=== PATIENT | male | born 1960 | race Caucasian/White ===

== ENCOUNTER 2019-04-17 12:10 | Outpatient (CLI) | payer BC ==
--- NOTE | 2019-04-17 13:13 | ULT ---
US Carotid Doppler STANDARD History: R41.0. Confusion. Comparison: None. Findings: Real-time grayscale, color, and spectral analysis of the extracranial carotid and vertebral arteries was performed. Antegrade flow both vertebral arteries. No abnormally elevated peak systolic velocities. Impression: No hemodynamically significant stenosis.
== END 2019-04-17 12:11 | disposition home or self-care (01) ==
LOC: BICULT 12:10
PROVIDERS: ATTEND Physician Assistant
DX: R41.0 Disorientation, unspecified (principal)
CPT/HCPCS: 93880

== ENCOUNTER 2020-12-16 07:36 | Outpatient (CLI) | payer BC ==
--- NOTE | 2020-12-16 09:43 | CT ---
CTA ABDOMEN AND PELVIS AND BILATERAL LOWER EXTREMITIES FOLLOWING CT RUNOFF: Multiplanar reconstruction and 3D postprocessing performed. INDICATION: Peripheral vascular disease. Claudication. FINDINGS: The abdominal aorta shows mild atherosclerotic change. No aneurysm or dissection. No significant sten osis at the origin of the arch vessels including celiac artery, superior mesenteric artery, or renal arteries. There are two right renal arteries, both of which appear patent. The aortic bifurcation is patent. Common iliac arteries show mild atherosclerotic change, but no sten osis. RIGHT LOWER EXTREMITY Right internal and external iliacs are patent. There is occlusion of the right common femoral artery at its origin with atherosclerotic changes and stenosis in the distal right external iliac. Focal area of dense calcification is seen in the right c ommon femoral at this occlusion. The profunda appears to fill retrograde via collaterals from the internal iliac. The right superficia l femoral artery is patent and appears to fill via retrograde flow from the profunda. There is atherosclerotic change throughout the right superficial femoral artery with areas of moderat e stenosis of mid and distal thigh. Focal stenosis distally at Jovanni's canal appears to approach 50% diameter. The right popliteal shows atherosclerotic calcification and moderate stenosis at the joint space. The popliteal trifurcates below the joint. Three vessels are seen in the proximal calf. The anterior tibial artery and peroneal artery appear to occlude distally. Posterior tibial artery is faintly visi ble at the ankle. LEFT LOWER EXTREMITY: Internal and external iliacs are patent with atherosclerotic changes prominent in the external iliac. There is focal stenosis in the distal external iliac. There is occlusion at the origin of the left c ommon femoral artery with dense calcification seen similar to the findings on the right. The profunda appears to reconstitute via collaterals from the internal iliac. The superficial femoral artery reconstitutes at its origin. Atherosclerotic change is seen throughout the left superficial f emoral artery with moderate stenosis at Jovanni's canal. Popliteal shows moderate atherosclerotic change with evidence of moderate stenosis at the joint space . The popliteal trifurcates below the knee. Three vessels are seen in the proximal calf. There appear t o be three vessels visible to the left ankle. SOFT TISSUES: Lung bases show chronic lung parenchymal change. Liver, spleen, and pancreas are unremarkable. Review of kidneys show a large exophytic cyst from the lateral left kidney measuring up to 5.0 m. Ano ther exophytic cyst from the more inferolateral left kidney measures 3.0 cm. Exophytic cyst from the mid lateral right kidney measures 2.8 cm. There are other smaller cysts which are subcentimeter and too small to characterize. Kidneys show symmetric enhancement and function. Small and large bowel loops are unremarkable. Images through the pelvis are unremarkable. Osseous structures unremarkable. Degenerative changes in the spine. There is mild wedging of the T11 vertebra. IMPRESSION: Peripheral arterial disease is noted with occlusion of both common femoral arteries as described neela de la o. POS: [facility]
[2020-12-16] MEDS ORDERED: Iopamidol-370 76% 500 ML 1 ML ONE (09:59)
== END 2020-12-16 07:37 | disposition home or self-care (01) ==
LOC: BICCT 07:36
PROVIDERS: ATTEND Thoracic Surgery (Cardiothoracic Vascular Surgery)
DX: I70.213 Atherosclerosis of native arteries of extremities with intermittent claudication, bilateral legs (principal)
CPT/HCPCS: 75635; 82565; Q9967

== ENCOUNTER 2021-02-06 15:12 | Outpatient (CLI) | payer BC ==
[2021-02-06 16:18] LABS: Hemoglobin 11.1 g/dL (13.5-17.5); Mean Corpuscular HGB CONC 32.8 g/dL (32.0-36.0); Mean Corpuscular Hemoglobin 28.4 pg (27.0-33.0); Mean Corpuscular Volume 86.4 fl (81.2-95.1); Mean Platelet Volume 8.9 fl (7.4-10.4); Platelet Count 403 10x3/uL (150-450); RBC Distribution Width 16.3 % (11.5-14.5); Red Blood Cell (RBC) Count 3.91 10x6/uL (4.32-5.72); White Blood Cell (WBC) Count 6.5 10x3/uL (3.5-10.5)
[2021-02-06 16:40] LABS: Anion Gap 10 mmol/L (10-20); BUN (Urea Nitrogen) 7 mg/dL (8.4-25.7); Calc. Creatinine Clearance 0 mL/min (70-130); Calcium 8.8 mg/dL (7.8-10.44); Carbon Dioxide 28 mmol/L (23-31); Chloride 103 mmol/L (98-107); Glucose 84 mg/dL (80-115); Potassium 4.7 mmol/L (3.5-5.1); Sodium 136 mmol/L (136-145)
[2021-02-07 02:10] LABS: SARS-CoV-2 PCR by NAA Not Detected (NotDetected)
== END 2021-02-06 15:13 | disposition home or self-care (01) ==
LOC: LABBT 15:12
PROVIDERS: ATTEND Thoracic Surgery (Cardiothoracic Vascular Surgery)
DX: Z01.812 Encounter for preprocedural laboratory examination (principal); I73.9 Peripheral vascular disease, unspecified; Z20.822 Contact with and (suspected) exposure to COVID-19
CPT/HCPCS: 80048; 85027; 86850; 86900; 86901; 87635; U0003; U0005

== ENCOUNTER 2021-02-06 15:15 | Inpatient (IN) | payer BC ==
[2021-02-11] MEDS ORDERED: Midazolam HCl 2 mg/2 ml Vial ONE ×2 (06:32→08:50)
[2021-02-11] MEDS ORDERED: Fentanyl 100 MCG/2 ML VIAL ONE (06:32)
[2021-02-11] MEDS ORDERED: Protamine Sulfate 50 MG/5 ML VIAL ONE (06:35)
[2021-02-11] MEDS ORDERED: Heparin 5,000 UNITS/ML VIAL ONE (06:35)
[2021-02-11] MEDS ORDERED: Calcium Chloride 1 GM/10 ML Abboject SYRINGE ONE (07:27)
[2021-02-11] MEDS ORDERED: Ondansetron PF 4 MG/2 ML Vial ONE (07:27)
[2021-02-11] MEDS ORDERED: Glycopyrrolate 0.2 MG/ML 5 ML SYRINGE ONE (07:27)
[2021-02-11] MEDS ORDERED: Rocuronium Bromide 10 MG/ML (10ML VIAL) ONE (07:27)
[2021-02-11] MEDS ORDERED: Dexamethasone 20 MG/5 ML VIAL ONE (07:27)
[2021-02-11] MEDS ORDERED: PROPOFOL 200 MG/20 ML VIAL ONE (07:27)
[2021-02-11] MEDS ORDERED: PHENYLEPHRINE-NS 100 MCG/ML 10 ML SYRINGE ONE (07:27)
[2021-02-11] MEDS ORDERED: Ketorolac Tromethamine 30 MG/ML VIAL ONE (12:01)
[2021-02-11] MEDS ORDERED: Acetaminophen 325 MG TAB PO PRN (15:37)
[2021-02-11] MEDS ORDERED: Ondansetron PF 4 MG/2 ML Vial IVP PRN (15:37)
[2021-02-11] MEDS ORDERED: Fentanyl 100 MCG/2 ML VIAL SLOW IVP PRN ×2 (15:37)
[2021-02-11] MEDS ORDERED: HYDROcodone/Acetaminophen 5/325 mg Tablet PO PRN ×2 (15:37)
[2021-02-11] MEDS ORDERED: Sodium Chloride 0.9% 1,000 ML IV SCH (15:37)
[2021-02-11 16:55] VITALS: BMI 22.8
[2021-02-11] MEDS: CEFAZOLIN 2 GM in Premix Bag 1 BAG IVPB SCH ×2 (18:10→23:37)
[2021-02-11] MEDS: Ketorolac Tromethamine 30 MG/ML VIAL IVP SCH ×2 (18:10→23:43)
[2021-02-12] MEDS: Ketorolac Tromethamine 30 MG/ML VIAL IVP SCH (05:42)
[2021-02-12 07:57] VITALS: BP 124/73; TEMP 98
[2021-02-12] MEDS: CEFAZOLIN 2 GM in Premix Bag 1 BAG IVPB SCH (08:21)
[2021-02-12] MEDS ORDERED: Aspirin Chewable 81 MG TAB PO SCH (09:00)
[2021-02-12] MEDS ORDERED: Lisinopril 10 MG TAB PO SCH (09:00)
== END 2021-02-12 10:08 | disposition home or self-care (01) | DRG 253 ==
LOC: SURG A 02-11 06:00 → T4-A 02-11 14:22 → EDSTATUS 02-11 15:15
PROVIDERS: ADMIT Thoracic Surgery (Cardiothoracic Vascular Surgery); ATTEND Thoracic Surgery (Cardiothoracic Vascular Surgery)
PROC: 04CK0ZZ Extirpation of Matter from Right Femoral Artery, Open Approach (ICD-10-PCS; principal; 2021-02-11)
PROC: 04UK0KZ Supplement Right Femoral Artery with Nonautologous Tissue Substitute, Open Approach (ICD-10-PCS; 2021-02-11)
DX: I73.9 Peripheral vascular disease, unspecified (principal); I74.3 Embolism and thrombosis of arteries of the lower extremities; I77.9 Disorder of arteries and arterioles, unspecified; I10 Essential (primary) hypertension; F17.200 Nicotine dependence, unspecified, uncomplicated; Z20.822 Contact with and (suspected) exposure to COVID-19
CPT/HCPCS: 86850; 86900; 86901; J0690; J1100; J1642; J1644; J1885; J2250; J2405; J2704; J2720; J3010

== ENCOUNTER 2022-12-07 03:24 | Emergency (ER) | payer BC ==
[2022-12-07] MEDS ORDERED: Acetaminophen 500 MG TAB ONE (04:02)
== END 2022-12-07 04:23 | disposition home or self-care (01) ==
LOC: ERS 03:24
DX: M25.531 Pain in right wrist (principal)